=== PATIENT | male | born 1945 | race Caucasian/White ===

== ENCOUNTER 2016-12-17 03:21 | Observation (INO) | payer OTHER, MEDICARE ==
[~2016-12-17] VITALS: Ht 175.3 cm; Wt 123.6 kg
[~2016-12-17 03:21] MED LIST: BYSTOLIC10 MG PO; MOTRIN600 MG PO; PERCOCET 5/31 TABLET PO; PREDNISONE20 MG PO; VALTREX1000 MG PO
[2016-12-17 04:26] LABS: HEMATOCRIT 49.2 % (38.0-50.0); MCH 29.4 PG (29.0-34.0); MCHC 33.7 G/DL (30.0-36.0); MCV 87.1 FL (86-99); MEAN PLAT.VOLUME 10.3 uM^3 (9.0-12.4); PLATELET COUNT 251 K/uL (156-360); RBC DIS.WIDTH-CV 14.3 % (11.8-14.6); RBC DIS.WIDTH-SD 45.6 % (39-53); RED BLOOD COUNT 5.65 M/uL (4.00-5.50)
[2016-12-17] MEDS ORDERED: TRAMADOL HCL50 MG PO (04:34)
[2016-12-17] MEDS ORDERED: MEDROL DOSEPAK4 MG PO (04:35)
[2016-12-17 04:42] LABS: CHLORIDE 106 mEq/L (99-109); POTASSIUM 4.6 mEq/L (3.7-5.4); SODIUM 143 mEq/L (136-147)
[2016-12-17 04:43] LABS: GLUCOSE 115 mg/dL (70-99)
[2016-12-17 04:45] LABS: ANION GAP 11 MEQ/L (2-14)
[2016-12-17 04:47] LABS: GFR ESTIMATE (CALCULATED) > 59 mL/min/
[2016-12-17 04:48] LABS: UREA NITROGEN (BUN) 20 mg/dL (9-23)
[2016-12-17 04:55] LABS: TROP-I INTERPRETATION NEGATIVE; TROPONIN-I < 0.01 ng/mL (0.0-0.30)
[2016-12-17 06:56] LABS: MAGNESIUM 2.4 mg/dL (1.3-2.7)
[2016-12-17 07:16] VITALS: BP 147/87
[2016-12-17 11:29] LABS: HDL CHOLESTEROL 61 MG/DL (Desirable>=40); LDL CHOLESTEROL 76 mg/dL (Desirable<100); NON-HDL CHOLESTEROL 84 mg/dL (Desirable<160); TOTAL CHOLESTEROL 145 mg/dL (Desirable<200); TRIGLYCERIDES 38 MG/DL (Normal: <150)
[2016-12-17 11:35] LABS: TROP-I INTERPRETATION NEGATIVE; TROPONIN-I < 0.01 ng/mL (0.0-0.30)
[2016-12-17 11:49] VITALS: BP 198/92
[2016-12-17 13:37] VITALS: BP 169/88
[2016-12-17] MEDS ORDERED: AMLODIPINE BESYL5 MG PO (13:39)
[2016-12-17] MEDS ORDERED: VALACYCLOVIR1000 MG PO (13:43)
[2016-12-17 15:43] VITALS: BP 163/86
== END 2016-12-17 16:08 | disposition home or self-care (01) ==
LOC: EME 03:21 → EDOF 05:16 → 5WEST 07:00
PROVIDERS: Physician Assistant Medical
DX: R07.9 Chest pain, unspecified (principal); I10 Essential (primary) hypertension; Z91.19 Patient's noncompliance with other medical treatment and regimen; B02.9 Zoster without complications; G47.33 Obstructive sleep apnea (adult) (pediatric); E66.01 Morbid (severe) obesity due to excess calories; Z68.41 Body mass index [BMI] 40.0-44.9, adult; J44.9 Chronic obstructive pulmonary disease, unspecified; J84.10 Pulmonary fibrosis, unspecified; Z83.3 Family history of diabetes mellitus; Z88.8 Allergy status to other drugs, medicaments and biological substances
CPT/HCPCS: 71020; 80048; 80061; 83735; 84484; 85027; 93005; 99281; 99285; G0378; J0360; J3360; J7040